=== PATIENT | female | born 1965 | race Caucasian/White ===

== ENCOUNTER → 2018-02-12 | Outpatient (CLI) | payer BC ==
[~2018-02-12] MED LIST: ALPR1 PO; CYCL10; DIPH50; ESTRADIOL1 MG; GABA300 PO; HYDACE10B PO; LISI5; Metamucil Plus1 EACH; SERT100; VITAMIN D5000 UNIT
[2018-02-12 13:15] LABS: U Amphetamine Screen Not Detected; U Barbituate Screen Not Detected; U Benzodiazapine Screen DETECTED; U Buprenorphine Screen Not Detected; U Cannabinoids Screen Not Detected; U Cocaine Screen Not Detected; U Methadone Screen Not Detected; U Methamphetamine Screen Not Detected; U Opiates Screen DETECTED; U Oxycodone Screen Not Detected; U Phencyclidine Screen Not Detected; U Propoxyphene Screen Not Detected
== END | disposition home or self-care (01) ==
LOC: LAB SHORT 12:50 → LAB 12:50
PROVIDERS: Internal Medicine
DX: Z51.81 Encounter for therapeutic drug level monitoring (principal); Z79.899 Other long term (current) drug therapy
CPT/HCPCS: G0480

== ENCOUNTER → 2019-07-18 | Outpatient (CLI) | payer BC | END | disposition home or self-care (01) | LOC: LAB SHORT 14:22 → LAB UCHC 14:22 | DX: J06.9 Acute upper respiratory infection, unspecified (principal) | CPT/HCPCS: 87081 ==

== ENCOUNTER 2022-06-11 03:01 | Emergency (ER) | payer BC ==
[~2022-06-11] VITALS: Ht 162.6 cm; Wt 49.9 kg
== END 2022-06-11 07:25 | disposition home or self-care (01) ==
LOC: ER 03:01
DX: S20.219A Contusion of unspecified front wall of thorax, initial encounter (principal); M79.672 Pain in left foot; W10.9XXA Fall (on) (from) unspecified stairs and steps, initial encounter; Z88.1 Allergy status to other antibiotic agents; Z79.899 Other long term (current) drug therapy
CPT/HCPCS: 70450; 71046; 71260; 72100; 72125; 72170; 73590; 73620; J3010; Q9967

== ENCOUNTER → 2024-03-14 | Outpatient (CLI) | payer BC ==
[2024-03-14 19:21] LABS: Anion Gap 8 mmol/L (3-11); Blood Urea Nitrogen 19 mg/dL (8-24); Bun/Creatinine Ratio 29.6 (12.0-20.0); CHOL/HDL RATIO 3.3; CO2, Blood 23 mmol/L (21-32); Calcium, Blood 8.8 mg/dL (8.5-10.1); Chloride, Blood 111 mmol/L (98-108); Cholesterol 224 mg/dL (50-200); Creatinine, Blood 0.64 mg/dL (0.40-1.00); Glomerular Filtration Rate 100 (60-); Glucose, Blood 91 mg/dL (70-99); HDL Cholesterol 68 mg/dL (>39); Low Density Lipoprotein Chol 134 mg/dL (0-110); Potassium, Blood 3.9 mmol/L (3.5-5.5); Sodium, Blood 138 mmol/L (136-145); Triglycerides 108 mg/dL (30-160); Very Low Density Lipoprot Chol 21 mg/dL (6-32)
== END ==
LOC: LAB SHORT 17:03 → LAB 17:03
PROVIDERS: Nurse Practitioner Family
DX: E78.5 Hyperlipidemia, unspecified (principal)
CPT/HCPCS: 80048; 80061

== ENCOUNTER 2024-06-01 15:19 | Observation (INO) | payer BC ==
[~2024-06-01] VITALS: Ht 162.6 cm; Wt 58.5 kg
[~2024-06-01 15:19] MED LIST changes: -CENTRUM SILVER1 EAC2 PO; -FENTANYL1 EA10; -FENTANYL1 EA12 TOP; -FERSU300 PO; -LIDOCAINE1 EACH TOP; -PRAMIPEXOLE0.125 M1 PO
[2024-06-01] MEDS ORDERED: FENTANYL1 EA12 TOP (16:30)
[2024-06-01 17:39] LABS: BASOPHILS ABSOLUTE AUTO 0.02 K/mm3 (0.00-0.23); BASOPHILS PERCENT AUTO 0 % (0-2); EOSINOPHILS PERCENT AUTO 2 % (0-6); IMMATURE GRAN ABSOLUTE AUTO 0.05 K/mm3 (0.00-0.10); IMMATURE GRAN PERCENT AUTO 1 % (0-1); LYMPHOCYTES ABSOLUTE AUTO 0.77 K/mm3 (0.84-5.20); LYMPHOCYTES PERCENT AUTO 16 % (21-46); MONOCYTES ABSOLUTE AUTO 0.23 K/mm3 (0.16-1.47); MONOCYTES PERCENT AUTO 5 % (4-13); Mean Corpuscular HGB 22.1 pg (26.0-34.0); Mean Corpuscular HGB Conc 28.5 g/dL (31.5-36.5); Mean Corpuscular Volume 77 fL (80-100); Mean Platelet Volume 10.9 fL (9.1-12.4); NEUTROPHILS ABSOLUTE AUTO 3.67 K/mm3 (1.96-9.15); NEUTROPHILS PERCENT AUTO 76 % (41-73); NRBC ABSOLUTE 0.03 K/mm3 (0.00-0.02); NRBC Auto 0.6 /100 WBC (0.0-0.2); Platelet Count 289 K/mm3 (150-400); RDW Standard Deviation 50.6 fL (35.1-46.3); Red Blood Cell Count 1.95 M/mm3 (3.80-5.20); White Blood Cell Count 4.84 K/mm3 (4.00-11.30)
[2024-06-01 17:42] LABS: Hemoglobin 4.3 g/dL (11.5-16.0)
[2024-06-01 17:43] LABS: Hematocrit 15.1 % (33.0-51.0)
[2024-06-01 17:57] LABS: Albumin, Blood 3.5 g/dL (3.4-5.0); Albumin/Globulin Ratio 1.1 (0.8-1.8); Bilirubin, Total 0.7 mg/dL (0.1-1.0); Bun/Creatinine Ratio 16.7 (12.0-20.0); Calcium, Blood 8.9 mg/dL (8.5-10.1); Creatinine, Blood 0.66 mg/dL (0.40-1.00); Globulin, Blood 3.2 g/dL (2.2-4.0); Potassium, Blood 4.1 mmol/L (3.5-5.5); Total Protein, Blood 6.7 g/dL (6.4-8.2)
[2024-06-01] MEDS ORDERED: NS 1,000 ML IV SCH ×2 (18:20→20:10)
[2024-06-01] MEDS ORDERED: Ondansetron HCl 2 MG / ML 2ML Vial IV PRN (20:05)
[2024-06-01] MEDS ORDERED: FLU VACC TS2024-25(6MOS UP)/PF 45 MCG/0.5 ML SYRINGE IM ONE (20:05)
[2024-06-01] MEDS ORDERED: FentaNYL 12 MCG/HR Patch TOP SCH (20:10)
[2024-06-01] MEDS ORDERED: Gabapentin 300 MG Cap PO SCH (21:00)
[2024-06-01] MEDS ORDERED: Pantoprazole Sodium 40 MG Injection IV ONE (21:00)
[2024-06-01] MEDS ORDERED: LIDOCAINE1 EACH TOP ×2 (21:22)
[2024-06-01] MEDS ORDERED: PRAMIPEXOLE0.125 M1 PO ×2 (21:23)
[2024-06-01] MEDS ORDERED: Pramipexole DI-HCL 0.125 MG Tab PO SCH (21:25)
[2024-06-01] MEDS ORDERED: FentaNYL 25 MCG Patch TOP ONE (21:25)
[2024-06-01] MEDS ORDERED: Pramipexole DI-HCL 0.25 MG Tab PO SCH (21:27)
[2024-06-01] MEDS ORDERED: NS 1,000 ML IV ONE (22:01)
[2024-06-01 23:08] VITALS: BP 131/83
[2024-06-01] MEDS ORDERED: FENTANYL1 EA10 ×2 (23:57)
[2024-06-02] VITALS (20 sets, daily range): BP systolic 106–150; BP diastolic 71–107
--- NOTE | 2024-06-02 00:45 | NUR ---
NEW ADMIT. PT TO FLOOR AT 2300. 2ND UNIT OF BLOOD TANSFUSING. VITALS TAKEN UPON ARRIVAL AND AGAIN AT 0019. TRANSFUSION COMPLETE AT 0040. PT TOLERATING WELL. VSS. LUNG SOUNDS CLEAR T/O. PT C/O OF FATIGUE AND HX OF CHRONIC BACK PAIN R/T DDD. H&H RECHECK ODERED AFTER SECOND TRANSFUSION. ORDER PLACED FOR 0130.
[2024-06-02 02:20] LABS: BASOPHILS ABSOLUTE AUTO 0.04 K/mm3 (0.00-0.23); BASOPHILS PERCENT AUTO 1 % (0-2); EOSINOPHILS ABSOLUTE AUTO 0.16 K/mm3 (0.00-0.68); EOSINOPHILS PERCENT AUTO 3 % (0-6); Hematocrit 23.5 % (33.0-51.0); Hemoglobin 7.2 g/dL (11.5-16.0); IMMATURE GRAN ABSOLUTE AUTO 0.05 K/mm3 (0.00-0.10); IMMATURE GRAN PERCENT AUTO 1 % (0-1); LYMPHOCYTES ABSOLUTE AUTO 1.33 K/mm3 (0.84-5.20); LYMPHOCYTES PERCENT AUTO 21 % (21-46); MONOCYTES ABSOLUTE AUTO 0.39 K/mm3 (0.16-1.47); MONOCYTES PERCENT AUTO 6 % (4-13); Mean Corpuscular HGB 24.2 pg (26.0-34.0); Mean Corpuscular HGB Conc 30.6 g/dL (31.5-36.5); Mean Corpuscular Volume 79 fL (80-100); Mean Platelet Volume 10.3 fL (9.1-12.4); NEUTROPHILS ABSOLUTE AUTO 4.27 K/mm3 (1.96-9.15); NEUTROPHILS PERCENT AUTO 68 % (41-73); NRBC ABSOLUTE 0.04 K/mm3 (0.00-0.02); NRBC Auto 0.6 /100 WBC (0.0-0.2); Platelet Count 266 K/mm3 (150-400); RDW Coefficient Variation 16.1 % (11.7-14.2); RDW Standard Deviation 46.6 fL (35.1-46.3); Red Blood Cell Count 2.98 M/mm3 (3.80-5.20); White Blood Cell Count 6.24 K/mm3 (4.00-11.30)
[2024-06-02 02:23] LABS: International Normalized Ratio 0.96; Prothrombin Time Results 10.3 Sec (9.7-11.5)
[2024-06-02 02:26] LABS: Albumin, Blood 3.1 g/dL (3.4-5.0); Bilirubin, Total 0.6 mg/dL (0.1-1.0); Bun/Creatinine Ratio 17.5 (12.0-20.0); Calcium, Blood 8.7 mg/dL (8.5-10.1); Creatinine, Blood 0.69 mg/dL (0.40-1.00); Potassium, Blood 3.8 mmol/L (3.5-5.5); Total Protein, Blood 6.1 g/dL (6.4-8.2)
[2024-06-02] MEDS ORDERED: Pantoprazole Sodium 40 MG Injection IV SCH (06:00)
--- NOTE | 2024-06-02 07:53 | NUR ---
METAL CASTING TRADES WORKER SUMMARY PT A/OX4. PLEASANT AND COOPERATIVE. PT INDEPENDENT IN THE ROOM AND ABLE TO MAKE NEEDS KNOWN. PT FINISHED SECOND UNIT OF BLOOD AND H&H RECHECKED AND HOUR AFTER COMPLETION. HGB 7.2. PT KEPT NPO AFTER MIDNIGHT FOR PLANNED EGD. CONULT TO DR BECERRA CALLED IN TO [facility] SERVICE. PT ORIENTED TO ROOM AND CALL LIGHT. REGULAR INTERVAL ROUNDING COMPLETE.
[2024-06-02] MEDS ORDERED: Sertraline HCl 100 MG Tab PO SCH (09:00)
[2024-06-02 11:21] LABS: Hematocrit 23.2 % (33.0-51.0); Hemoglobin 7.2 g/dL (11.5-16.0)
[2024-06-02] MEDS ORDERED: Lactated Ringer's 1,000 ML IV SCH (12:30)
[2024-06-02] MEDS ORDERED: propofoL 20 ML IV ONE (13:05)
--- NOTE | 2024-06-02 13:16 | NUR ---
NOTE: PATIENT LEFT THE ROOM VIA GURNEY TO DAY SURGERY FOR EGD.
--- NOTE | 2024-06-02 15:27 | NUR ---
06/02/24 1527 Prince Gay CONFIRMED AND REVIEWED H&P, MEDCICATIONS, ALLERGIES, MEDICAL HISTORY, RESPIRATORY HISTORY, VITAL SIGNS, 3-LEAD EKG, CONSENTS, AND PHYSICIAN ORDERS. PATIENT CONFIRMS NPO STATUS AND AGREES WITH SCHEDULED PROCEDURE. MONITOR INTACT WITH CONTINUOUS PULSE OXIMETRY, CAPNOGRAPHY, 3-LEAD EKG, INTERMITTENT BP. SUPPLEMENTAL O2 TO BE TITRATED THROUGHOUT PROCEDURE TO MAINTAIN O2 SATURATION ABOVE 90%. PATIENT DETERMINED TO BE ASA APPROPRIATE FOR PROPOFOL SEDATION PRIOR TO START OF PROCEDURE BY DR. BECERRA.
[2024-06-02] MEDS ORDERED: CENTRUM SILVER1 EAC2 PO ×2 (17:48)
[2024-06-02] MEDS ORDERED: Sodium, Potassium,Mag Sulfates 354 ML PO SCH (18:00)
--- NOTE | 2024-06-02 18:27 | NUR ---
SHIFT SUMMARY: PATIENT A/OX4, CALM, PLEASANT AND COOPERATIVE c CARE. PATIENT DENIES CP/PRESSURE, N/V, SOB AND DIZZINESS. PATIENT HAD HER EGD DONE TODAY c NEGATIVE RESULT. POST-OP VITALS TAKEN. DR. BECERRA PLAN TO HAVE PATIENT COLONOSCOPY DONE TOMORROW, WHICH PATIENT AGREED TO THE PLAN OF CARE. PATIENT ON CL, RECEIVED FIRST DOSE OF HER BOWEL PREP AT 1736, SECOND DOSE AT 0500 06/03/24 AND NPO AT 0900. PATIENT CONTINENT OF BLADDER, AMBULATES TO BATHROOM INDEPENDENTLY T/O SHIFT. VITAL SIGNS REVIEWED. CALL LIGHT IN REACH.
[2024-06-03] VITALS (19 sets, daily range): BP systolic 99–125; BP diastolic 63–91
--- NOTE | 2024-06-03 07:36 | NUR ---
PRICE CLERK SUMMARY PT A/OX4. PLEASANT AND COOPERATIVE. PT KEPT ON CLEAR LIQUIDS T/O THE NIGHT. STOOL THIS MORNING AT 0500 WAS LIGHT YELLOW WIHT MINIMAL SEDIMENT. PT STARTED 2ND ROUND OF SUREPREP AT 0500. NO ACUTE EVENTS. PT TOLERATED PREP WELL. CALL LIGHT ACCESSIBLE. PT ABLE TO MAKE NEEDS KNOWN.
[2024-06-03 07:59] LABS: Hematocrit 28.2 % (33.0-51.0); Hemoglobin 8.5 g/dL (11.5-16.0)
[2024-06-03 11:58] LABS: IMMATURE RETIC FRACTION 23.8 % (2.3-16.0); RETIC HGB EQUIVALENT 14.9 pg (28.20-36.60); RETICULOCYTE ABSOLUTE 0.1125 M/mm3 (0.0200-0.1100); RETICULOCYTE COUNT PERCENT 3.09 % (0.50-2.50)
[2024-06-03] MEDS ORDERED: Lactated Ringer's 1,000 ML IV SCH (12:00)
[2024-06-03] MEDS ORDERED: propofoL 40 ML IV ONE (12:05)
[2024-06-03 12:21] LABS: Percent Saturation 3.6 % (15.0-50.0)
--- NOTE | 2024-06-03 13:04 | NUR ---
06/03/24 1302 Nadia Cortez CONFIRMED AND REVIEWED H&P, MEDCICATIONS, ALLERGIES, MEDICAL HISTORY, RESPIRATORY HISTORY, VITAL SIGNS, 3-LEAD EKG, CONSENTS, AND PHYSICIAN ORDERS. PATIENT CONFIRMS NPO STATUS AND AGREES WITH SCHEDULED PROCEDURE. MONITOR INTACT WITH CONTINUOUS PULSE OXIMETRY, CAPNOGRAPHY, 3-LEAD EKG, INTERMITTENT BP. SUPPLEMENTAL O2 TO BE TITRATED THROUGHOUT PROCEDURE TO MAINTAIN O2 SATURATION ABOVE 90%. PATIENT DETERMINED TO BE ASA APPROPRIATE FOR PROPOFOL SEDATION PRIOR TO START OF PROCEDURE BY DR. BECERRA
--- NOTE | 2024-06-03 14:02 | NUR ---
NOTE: PATIENT ARRIVES TO ROOM AT 1329 VIA BED FROM RECOVERY. PATIENT A/OX4, CALM, PLEASANT AND COOPERATIVE c CARE. PATIENT REPORTS SHE IS HUNGRY AND REQUESTING FOOD. POST-OP VITALS TAKEN; TEMP 97.3, RESP 16, HR 88 BPM, BP 121/77, O2 98% RA. PATIENT PROVIDED c WHOLE TURKEY SANDWICH AND PEPSI, TOLERATING WELL. PATIENT DENIES N/V, ABDOMINAL PAIN/DISCOMFORT, CP/PRESSURE, SOB AND DIZZINESS. DR RDZ ROUND ON PATIENT, PLAN TO DISCHARGE HER HOME TODAY AFTER FE INFUSION. WCTM PATIENT T/O SHIFT. CALL LIGHT IN REACH.
[2024-06-03] MEDS ORDERED: Sod Ferric Gluc Complx/Sucrose 125 MG in NS 100 ML IV ONE (14:30)
[2024-06-03] MEDS ORDERED: FERSU300 PO ×2 (15:19)
--- NOTE | 2024-06-03 16:12 | NUR ---
SHIFT/DISCHARGE SUMMARY: PATIENT A/OX4, CALM, PLEASANT AND COOPERATIVE c CARE. PATIENT DENIES CP/PRESSURE, SOB, N/V AND DIZZINESS. PATIENT HAD HER COLONOSCOPY DONE TODAY c NEGATIVE RESULT, DR. BECERRA RECOMMENDING CAPSULE ENDOSCOPY DONE IN [place]. [facility] LY RN FROM SURGERY DR. BECERRA OFFICE WILL REFERRED PATIENT TO [place] OUTPT. PATIENT DID RECEIVED OT DOSE OF IV FE PER ORDER. VITALS SIGNS REVIEWED. PATIENT HAS HAD NO COMPLAINTS OR DENIES NEW CONCERNED THIS SHIFT. PIV DC'D. PATIENT DISCHARGE HOME. DISCHARGE INSTRUCTIONS PACKET GIVEN TO PATIENT. PATIENT EDUCATED ON ADMITITNG DX'S OF UPPER GI BLEED, S/S, TX, NEW RX, F/U c PCP AND TO HAVE HER CAPSULE ENDOSCOPY DONE IN [place]. PATIENT VERBALIZED UNDERSTANDING AND NO FURTHER QUESTIONS. RX WAS FAXED TO PATIENT [facility]. ALL PERSONAL BELONGINGS WERE SENT c THE PATIENT. PATIENT LEFT THE ROOM AT 1612, TRANSPORTED VIA WHEELCHAIR BY OLINDA JIM TO PATIENT ENTRANCE.
== END 2024-06-03 16:30 | disposition home or self-care (01) ==
LOC: ER 15:19 → MEDS 15:20 → ER 20:04 → MEDS 23:02
PROVIDERS: Family Medicine; Nurse Practitioner Acute Care; Student in an Organized Health Care Education/Training Program; Surgery; ADMIT Internal Medicine
PROC: 0DJD8ZZ Inspection of Lower Intestinal Tract, Via Natural or Artificial Opening Endoscopic (ICD-10-PCS; principal; 2024-06-02 15:00)
PROC: 0DJ08ZZ Inspection of Upper Intestinal Tract, Via Natural or Artificial Opening Endoscopic (ICD-10-PCS; principal; 2024-06-02 15:00)
DX: D62 Acute posthemorrhagic anemia (principal); K92.2 Gastrointestinal hemorrhage, unspecified; K92.1 Melena; K44.9 Diaphragmatic hernia without obstruction or gangrene; F32.A Depression, unspecified; F41.9 Anxiety disorder, unspecified; M15.9 Polyosteoarthritis, unspecified; Z79.899 Other long term (current) drug therapy; Z88.1 Allergy status to other antibiotic agents; Z88.8 Allergy status to other drugs, medicaments and biological substances; Z90.710 Acquired absence of both cervix and uterus; R06.09 Other forms of dyspnea
CPT/HCPCS: 36415; 36430; 71046; 72170; 80053; 82607; 82728; 82746; 83540; 83550; 83880; 84443; 84484; 85014; 85018; 85025; 85045; 85379; 85610; 86850; 86900; 86901; 86923; 93005; 93010; 96374; 96376; 99285-25; A9270; G0378; J2470; J2704; J2916; J7030; J7120; P9016

== ENCOUNTER → 2024-06-01 | Outpatient (CLI) | payer BC ==
[~2024-06-01] MED LIST changes: +CENTRUM SILVER1 EAC2 PO; +FENTANYL1 EA10; +FENTANYL1 EA12 TOP; +FERSU300 PO; +LIDOCAINE1 EACH TOP; +PRAMIPEXOLE0.125 M1 PO; -SERT100; +SERT100 PO
[2024-06-01 14:47] LABS: BASOPHILS ABSOLUTE AUTO 0.02 K/mm3 (0.00-0.23); BASOPHILS PERCENT AUTO 0 % (0-2); EOSINOPHILS ABSOLUTE AUTO 0.14 K/mm3 (0.00-0.68); EOSINOPHILS PERCENT AUTO 3 % (0-6); IMMATURE GRAN ABSOLUTE AUTO 0.06 K/mm3 (0.00-0.10); IMMATURE GRAN PERCENT AUTO 1 % (0-1); LYMPHOCYTES ABSOLUTE AUTO 0.79 K/mm3 (0.84-5.20); LYMPHOCYTES PERCENT AUTO 15 % (21-46); MONOCYTES PERCENT AUTO 6 % (4-13); Mean Corpuscular HGB 21.2 pg (26.0-34.0); Mean Corpuscular HGB Conc 27.2 g/dL (31.5-36.5); Mean Corpuscular Volume 78 fL (80-100); Mean Platelet Volume 10.2 fL (9.1-12.4); NEUTROPHILS ABSOLUTE AUTO 4.13 K/mm3 (1.96-9.15); NRBC ABSOLUTE 0.04 K/mm3 (0.00-0.02); NRBC Auto 0.7 /100 WBC (0.0-0.2); Platelet Count 277 K/mm3 (150-400); RDW Coefficient Variation 18.2 % (11.7-14.2); RDW Standard Deviation 51.7 fL (35.1-46.3); Red Blood Cell Count 2.08 M/mm3 (3.80-5.20); White Blood Cell Count 5.44 K/mm3 (4.00-11.30)
[2024-06-01 14:57] LABS: Hematocrit 16.2 % (33.0-51.0); Hemoglobin 4.4 g/dL (11.5-16.0)
[2024-06-01 15:04] LABS: NEUTROPHILS PERCENT AUTO 7 % (41-73)
[2024-06-01 15:06] LABS: Albumin, Blood 3.8 g/dL (3.4-5.0); Albumin/Globulin Ratio 1.2 (0.8-1.8); Bilirubin, Total 0.5 mg/dL (0.1-1.0); Bun/Creatinine Ratio 13.9 (12.0-20.0); Calcium, Blood 8.6 mg/dL (8.5-10.1); Creatinine, Blood 0.79 mg/dL (0.40-1.00); Globulin, Blood 3.1 g/dL (2.2-4.0); Potassium, Blood 4.3 mmol/L (3.5-5.5); Thyroid Stimulating Hormone 1.277 uIU/mL (0.360-4.800); Total Protein, Blood 6.9 g/dL (6.4-8.2)
== END | disposition home or self-care (01) ==
LOC: LAB SHORT 14:42 → LAB 14:42
PROVIDERS: Chiropractor
DX: R06.09 Other forms of dyspnea (principal)
CPT/HCPCS: 80053; 83880; 84443; 84484; 85025; 85379

== ENCOUNTER → 2025-02-20 | Outpatient (CLI) | payer BC ==
[~2025-02-20] MED LIST changes: +CENTRUM SILVER1 EAC2 PO; +FENTANYL1 EA10; +FENTANYL1 EA12 TOP; +FERSU300 PO; +LIDOCAINE1 EACH TOP; +PRAMIPEXOLE0.125 M1 PO
[2025-02-20 17:00] LABS: Bacterial Vaginosis PCR Negative (NEGATIVE); Candida Group, PCR NOT DETECTED (NOT DETECT); Candida glabrata-krusei, PCR NOT DETECTED (NOT DETECT)
== END | disposition home or self-care (01) ==
LOC: LAB 13:18 → LAB SHORT 13:18
PROVIDERS: Nurse Practitioner Family
DX: R35.0 Frequency of micturition (principal)
CPT/HCPCS: 81515; 87077; 87086; 87186; 87335